=== PATIENT | male | born 1980 | race Caucasian/White ===

== ENCOUNTER 2022-10-02 17:21 | Emergency (ER) | payer OTHER ==
[2022-10-02 17:32] VITALS: BP 214/123
[2022-10-02] MEDS ORDERED: lisinopriL 5 MG TABLET PO STA (18:04)
--- NOTE | 2022-10-02 18:06 | ED Physician Documentation ---
History of Present Illness - Stated complaint Stated Complaint: HIGH BP - Chief complaint Chief Complaint: Cardiac - History obtained from History obtained from: Patient - History of Present Illness Pain level max: 0 Pain level now: 0 - Additonal information Additional information: 42-year-old male with a longstanding history of hypertension states that he has been taking his blood pressure recently and found it to be over 200. He states he used to be on blood pressure medications but does not know which ones they are. He states he stopped them in April because he did not want to take them anymore. Occasionally has a headache but none now. No visual changes. No numbness or tingling. No focal neurological deficits. No chest pain. No shortness of breath. No visual changes. Patient would like to be restarted on blood pressure medication. Review of Systems Constitutional: denies: Fever Musculoskeletal: denies: Neck pain, Back pain Neurologic: denies: Focal weakness, Numbness, Syncope, Seizure, Confused, Head injury, LOC PD PAST MEDICAL HISTORY - Past Medical History Past Medical History: Yes Cardiovascular: Hypertension - Present Medications Home Medications: Ambulatory Orders Medication Instructions Recorded Confirmed Lisinopril [Zestril] 10 mg PO DAILY #30 tablet 10/02/22 - Allergies Allergies/Adverse Reactions: Allergies Allergy/AdvReac Type Severity Reaction Status Date / Time No Known Drug Allergies Allergy Verified 10/02/22 17:32 - Living Situation Living Arrangement: reports: At home - Social History Does the pt have substance abuse?: No - Family History Family history: reports: Non contributory PD ED PE NORMAL - Vitals Vital signs reviewed: Yes - General General: Alert and oriented X 3, No acute distress, Well developed/nourished - HEENT HEENT: Atraumatic, PERRL, EOMI, Ears normal, Moist mucous membranes - Neck Neck: Supple, no meningeal sign, No JVD, No bruit - Cardiac Cardiac: RRR, No murmur, Strong equal pulses - Respiratory Respiratory: No respiratory distress, Clear bilaterally - Abdomen Abdomen: Soft, Non tender, Non distended - Derm Derm: Warm and dry - Extremities Extremities: No edema, No calf tenderness / cord - Neuro Neuro: Alert and oriented X 3, alto singer 2-12 intact, No motor deficit, No sensory deficit, Normal speech Eye Opening: Spontaneous Motor: Obeys Commands Verbal: Oriented GCS Score: 15 - Psych Psych: Normal mood, Normal affect Results - Vitals Vitals: Vital Signs - 24 hr 10/02/22 10/02/22 17:24 17:32 Temperature 36.7 C 36.7 C Heart Rate 74 74 Respiratory 15 15 Rate Blood Pressure 214/123 H 214/123 H O2 Saturation 100 100 Oxygen O2 Source Room air PD Medical Decision Making - ED course Complexity details: considered differential, d/w patient ED course: In accordance with the [facility] clinical policy from October 2012, this patient has asymptomatic elevated blood pressure without evidence of acute target organ injury. There are also no signs of acute stroke, cardiac ischemia, pulmonary edema, encephalopathy or acute congestive heart failure. Therefore the patient will be referred to their primary care provider for follow-up of their asymptomatic hypertension. We will restart the patient on his lisinopril and have him follow-up with his PCP. Patient counseled regarding signs and symptoms for which I believe and urgent re-evaluation would be necessary. Patient with good understanding of and agreement to plan and is comfortable going home at this time This document was made in part using voice recognition software. While efforts are made to proofread this document, sound alike and grammatical errors may occur. Departure - Departure Disposition: 01 Home, Self Care Clinical Impression: Asymptomatic hypertension Condition: Good Instructions: ED HTN Established Follow-Up: your,doctor in 3 days [Other] Prescriptions: Lisinopril [Zestril] 10 mg PO DAILY #30 tablet Comments: I will start you on lisinopril for your blood pressure. Your old pharmacy records are not available. Please follow-up with your doctor later this week for further evaluation and care. Return for chest pain, shortness of breath, visual changes, numbness, tingling, severe headache or any other new or worrisome symptoms. Your prescriptions were sent to the [facility] pharmacy. Discharge Date/Time: 10/02/22 18:12
== END 2022-10-02 18:12 | disposition home or self-care (01) ==
LOC: ED 17:21
DX: I10 Essential (primary) hypertension (principal); Z91.128 Patient's intentional underdosing of medication regimen for other reason
CPT/HCPCS: 99282; 99283; A9270

== ENCOUNTER 2023-07-04 12:43 | Emergency (ER) | payer OTHER ==
[2023-07-04 13:03] VITALS: O2SAT 100
[2023-07-04] MEDS ORDERED: hydroCHLOROthiazide 25 MG TABLET PO STA (14:15)
--- NOTE | 2023-07-04 14:17 | ED Physician Documentation ---
History of Present Illness - Stated complaint Stated Complaint: HTN - Chief complaint Chief Complaint: General - History obtained from History obtained from: Patient - Additonal information Additional information: 43-year-old gentleman with history of hypertension. He ran out of his hydrochlorothiazide about a month ago [place]. He feels fine but went for a dental cleaning today and they checked his blood pressure and it was high and he was referred to [facility] and subsequently here by ambulance for asymptomatic hypertension. PD PAST MEDICAL HISTORY - Past Medical History Cardiovascular: Hypertension - Present Medications Home Medications: Ambulatory Orders Medication Instructions Recorded Confirmed Lisinopril [Zestril] 10 mg PO DAILY #30 tablet 10/02/22 hydroCHLOROthiazide [Hydrodiuril] 25 mg PO DAILY #60 tablet 07/04/23 - Allergies Allergies/Adverse Reactions: Allergies Allergy/AdvReac Type Severity Reaction Status Date / Time No Known Drug Allergies Allergy Verified 10/02/22 17:32 - Social History Does the pt have substance abuse?: No PD ED PE NORMAL - Vitals Vital signs reviewed: Yes - General General: Alert and oriented X 3, No acute distress - Cardiac Cardiac: RRR, No murmur - Respiratory Respiratory: No respiratory distress, Clear bilaterally - Abdomen Abdomen: Non tender - Neuro Neuro: Alert and oriented X 3, Normal speech Results - Vitals Vitals: Vital Signs - 24 hr 07/04/23 12:51 Temperature 36.1 C L Heart Rate 63 Respiratory 16 Rate Blood Pressure 190/121 H O2 Saturation 100 Oxygen O2 Source Room air PD Medical Decision Making - ED course ED course: Patient with asymptomatic hypertension and is out of his meds. He was given a dose of hydrochlorothiazide here and a refill. Departure - Departure Disposition: Home, Self Care Clinical Impression: Asymptomatic hypertension Condition: Good Record reviewed to determine appropriate education?: Yes Instructions: ED Hypertension Conf Out Of Control Prescriptions: hydroCHLOROthiazide [Hydrodiuril] 25 mg PO DAILY #60 tablet Comments: I sent the prescription electronically to [facility] [place]. Follow-up with [facility], next available appointment. Return for new or worsening s ymptoms.
[2023-07-04 15:11] VITALS: BP 203/133
== END 2023-07-04 15:07 | disposition home or self-care (01) ==
LOC: EDUNIT# → ED 12:43
DX: I10 Essential (primary) hypertension (principal); Z79.899 Other long term (current) drug therapy
CPT/HCPCS: 99283; A9270